=== PATIENT | male | born 1975 | race African-American/Black ===

== ENCOUNTER 2024-12-15 08:14 | Emergency (ER) | payer OTHER, SELFPAY | END 2024-12-15 08:53 | disposition home or self-care (01) | LOC: CSHERS 08:14 | DX: M54.50 Low back pain, unspecified (principal); R03.0 Elevated blood-pressure reading, without diagnosis of hypertension; Z75.3 Unavailability and inaccessibility of health-care facilities; X58.XXXA Exposure to other specified factors, initial encounter; Y93.67 Activity, basketball | CPT/HCPCS: 99283 ==